=== PATIENT | male | born 1995 | race Caucasian/White ===

== ENCOUNTER 2017-04-03 06:44 | Emergency (ER) | payer SELFPAY ==
[~2017-04-03] VITALS: Ht 172.7 cm; Wt 72.7 kg
[~2017-04-03 06:44] MED LIST: AMOXICILLIN 25250 MG PO; NO HOME MEDICATIONS; POLYMYXIN B/TRIMETH OS
[2017-04-03 06:45] VITALS: BP 138/86; PULSE 76; TEMP 98
== END 2017-04-03 07:50 | disposition home or self-care (01) ==
LOC: COL.ER 06:44
DX: M67.431 Ganglion, right wrist (principal); F17.210 Nicotine dependence, cigarettes, uncomplicated

== ENCOUNTER 2017-05-10 06:50 | Emergency (ER) | payer SELFPAY ==
[~2017-05-10] VITALS: Ht 172.7 cm; Wt 80.0 kg
[2017-05-10 06:52] VITALS: BP 139/82; TEMP 98.1
[2017-05-10] MEDS ORDERED: ZITHROMAX Z PA250 MG PO (07:48)
[2017-05-10 07:59] VITALS: PULSE 75
== END 2017-05-10 08:00 | disposition home or self-care (01) ==
LOC: COL.ER 06:50
DX: J22 Unspecified acute lower respiratory infection (principal); F17.210 Nicotine dependence, cigarettes, uncomplicated

== ENCOUNTER 2022-01-27 09:08 | Emergency (ER) | payer BC ==
[~2022-01-27] VITALS: Ht 172.7 cm; Wt 95.5 kg
[~2022-01-27 09:08] MED LIST changes: +ZITHROMAX Z PA250 MG PO
[2022-01-27 09:32] VITALS: BP 135/83; TEMP 98.1
[2022-01-27] MEDS ORDERED: CRUTCHES MC (10:43)
[2022-01-27] MEDS ORDERED: NORCO 325 MG-51 TAB PO (10:46)
[2022-01-27 11:13] VITALS: PULSE 73
== END 2022-01-27 11:13 | disposition home or self-care (01) ==
LOC: COL.ER 09:08
DX: S87.02XA Crushing injury of left knee, initial encounter (principal); F17.210 Nicotine dependence, cigarettes, uncomplicated; Z28.310 Unvaccinated for COVID-19; W23.1XXA Caught, crushed, jammed, or pinched between stationary objects, initial encounter